=== PATIENT | male | born 1985 | race Caucasian/White ===

== ENCOUNTER 2017-02-24 17:29 | Emergency (ER) | payer BC ==
[2017-02-24 17:43] VITALS: RESP 16; TEMP 98.1
--- NOTE | 2017-02-24 18:18 | EDPHY ---
H & P Time Seen by Provider: 02/24/17 17:55 HPI/ROS: CHIEF COMPLAINT: Head injury HISTORY OF PRESENT ILLNESS: This patient is a healthy 32 year old male arriving by private vehicle complaining of nausea and dizziness following a head injury yesterday. He states he was lifting a garage door with a friend, and that the door slipped and struck him on the back of the head as they were lowering it. He states he felt "intense pain and burning" in the area where the door struck for about 20 minutes, but had no other symptoms at the time. No headache. Asymptomatic when he awoke today. This afternoon while getting a massage, he experienced acute onset nausea and dizziness with vomiting x1. He states he felt a "weird funkiness" and noted sensitivity to light and an "altered feeling" that has persisted to the present. He denies headache, acute neck pain, vision changes, or current nausea. He has a history of concussions. REVIEW OF SYSTEMS: Constitutional: No weakness Eyes: No visual changes or eye pain ENT: +intermittent tinnitus. No dental trauma. Neck: +chronic neck pain with bilateral paresthesias. No acute injury. Respiratory: No shortness of breath Cardiac: No chest pain Gastrointestinal: +nausea and vomiting. No abdominal pain Back: No pain or injury Genitourinary: No hematuria Musculoskeletal: No joint pain Skin: No lacerations Neurological: +dizziness, +brain fog, no headache Past Medical/Surgical History: Kidney stones, osteopenia, avascular necrosis bilateral hips, congenital bicuspid valve disorder. Social History: Former smoker. Single. Smoking Status: Former smoker Physical Exam: General Appearance: Alert, no distress Head: Tenderness to palpation of the right parietal scalp, no redness or swelling Eyes: No conjunctival erythema, PERRLA, EOMI, no nystagmus ENT, Mouth: No hemotympanum, no oral trauma, no bony tenderness Neck: Non-tender, full range of motion without pain Respiratory: No chest wall tenderness, lungs clear bilaterally Cardiovascular: Regular rate and rhythm Abdomen: Abdomen is soft and non tender Skin: No lacerations, no abrasions Back: No midline T/L/S tenderness Extremities: Pelvis is stable and nontender; no extremity tenderness or deformity, full range of motion without pain Neurological: A&Ox3, normal motor function, normal sensory exam, cranial nerves intact, no pronator drift, normal gait Psychiatric: Mood and affect normal Constitutional: Initial Vital Signs Temperature (C) 36.7 C 02/24/17 17:39 Heart Rate 75 02/24/17 17:39 Respiratory Rate 16 02/24/17 17:39 Blood Pressure 130/85 H 02/24/17 17:39 O2 Sat (%) 98 02/24/17 17:39 O2 Delivery Mode Room Air Allergies/Adverse Reactions: Salicylates * [Salicylates] Allergy (Unknown, Verified 09/07/16 10:43) not sure Sulfa (Sulfonamide Antibiotics) Allergy (Unknown, Verified 09/07/16 10:43) not sure sulfite [Sulfite] Allergy (Unknown, Verified 09/07/16 10:43) alpha lipoic acid [From Alpha Lipoic Acid] Adverse Reaction (Unknown, Verified 09/07/16 10:43) aspartame [Aspartame] Adverse Reaction (Unknown, Verified 09/07/16 10:43) Benzoate Analogues [Benzoate Derivatives] Adverse Reaction (Unknown, Verified 10:43) gluten [Gluten] Adverse Reaction (Unknown, Verified 09/07/16 10:43) monosodium glutamate [Monosodium Glutamate] Adverse Reaction (Unknown, Verified 09/07/16 10:43) Nitrate *RETIRED-06/26/12 [Nitrate] Adverse Reaction (Unknown, Verified 10:43) CASINE Adverse Reaction (Uncoded 05/25/13 21:49) Home Medications: Medication Instructions Recorded Hydrocodone/APAP 5/325 [[place] 1 tab PO Q6H PRN #10 tab 09/08/16 5/325 (*)] Meclizine HCl [Meclizine HCl 25 mg 25 mg PO TID PRN #15 tab 02/24/17 (RX,OTC)] Medical Decision Making - Diagnostics Imaging Results: Imaging Impressions Head CT 02/24/17 18:15 Impression: 1. Normal CT brain without contrast. 2. No epidural or subdural hematoma. Findings and recommendations discussed with Emergency Department physician, LISE BENTON at 18:58 hour, 02/24/2017. Final report concurs with initial preliminary interpretation. ED Course/Re-evaluation: This otherwise healthy 32 year old male presents following an episode of acute vertigo with vomiting and residual brain fog and nausea that he attributes to a head injury obtained yesterday when he hit his parietal scalp with his garage door when attempting to close it. He denies headache at the time of injury or upon presentation. His scalp is tender to palpation over the parietal scalp without erythema or hematoma. He reports nausea with movement of his head. He has no nystagmus. I discussed with the patient that he does not meet criteria for requiring an emergent CT of the head. Despite this, he is insistent. Will proceed with Head CT at the request of the patient. CT obtained and is negative. I discussed these results with the patient. He understands that he should follow-up with an ENT Specialist should his vertigo persist. He is also given Meclizine HCl to use as needed to treat vertigo. He will be discharged home in good condition. Differential Diagnosis: The differential diagnosis for the patient's head injury included but was not limited to concussion, skull fracture, intra-parenchymal contusion, subarachnoid , subdural and epidural hematoma. Departure - Departure Disposition: Home, Routine, Self-Care Clinical Impression: Vertigo Head injury Qualifiers: Encounter type: initial encounter Qualified Code(s): S09.90XA - Unspecified injury of head, initial encounter Condition: Good Instructions: Head Injury (ED), Vertigo (ED) Additional Instructions: 1. Take 25mg Meclizine every six hours as needed for dizziness. This medication may make you drowsy. Do not use it before you have to drive or work. 2. Follow up with an Ear, Nose, and Throat specialist if your dizziness is unresolved in the next week. 3. Return to the ED for severe headache or other serious concerns. Referrals: NONE *PRIMARY CARE P,. [Primary Care Provider] - As per Instructions Prescriptions: Meclizine HCl [Meclizine HCl 25 mg (RX,OTC)] 25 mg PO TID PRN #15 tab PRN Reason: Dizziness
[2017-02-24 19:15] VITALS: BP 132/84; PULSE 71; O2SAT 95
== END 2017-02-24 19:15 | disposition home or self-care (01) ==
DX: S09.90XA Unspecified injury of head, initial encounter (principal); R42 Dizziness and giddiness; Z87.891 Personal history of nicotine dependence; W22.8XXA Striking against or struck by other objects, initial encounter; Y99.8 Other external cause status; Y93.89 Activity, other specified